=== PATIENT | female | born 2000 | race African-American/Black ===

== ENCOUNTER 2021-03-05 10:43 | Emergency (ER) | payer OTHER ==
[~2021-03-05] VITALS: Ht 167.6 cm; Wt 59.0 kg
--- NOTE | 2021-03-05 10:43 | NUR ---
BIBA TO BED 11 WITH MOTHER
[2021-03-05 10:48] VITALS: BP 132/62
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
[2021-03-05] MEDS: KETOROLAC 60 MG/2 ML VIAL IM ONE (11:28)
--- NOTE | 2021-03-05 12:08 | NUR ---
PA NAVARRO AT BEDSIDE EVALUATING PT
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
--- NOTE | 2021-03-05 12:44 | NUR ---
BACK FROM RAD. MADE COMFORTABLE.
--- NOTE | 2021-03-05 13:45 | NUR ---
PT REFUSED CLEAN UP OF ABRASION ON LEFT SIDE OF FACE
--- NOTE | 2021-03-05 14:02 | NUR ---
OFFERED TO CLEAN PTS DRY BLOOD OFF SIDE OF LEFT EYE. PT REFUSED. ONLY ABLE TO VISUALIZE SMALL ABRASION. CATHY NAVARRO MADE AWARE.
[2021-03-05] MEDS ORDERED: BACI1PAC6 TP (14:05)
[2021-03-05] MEDS ORDERED: CYCL-711 PO (14:05)
[2021-03-05] MEDS ORDERED: IBUP-2213 PO (14:05)
[2021-03-05 14:22] VITALS: BP 132/62
--- NOTE | 2021-03-05 14:23 | NUR ---
Patient discharged with v/s stable. Written and verbal after care instructions ABOUT MEDICATIONS, CERVICAL SPRAIN, ABRASION, AND LOW BACK SPRAIN given and explained. Patient alert, oriented and verbalized understanding of instructions. Ambulatory with steady gait. All questions addressed prior to discharge. ID band removed. Patient advised to follow up with PMD. Rx of BACITRACIN ZINC, CYCLOBENZAPRINE, AND IBUPROFEN given. Patient educated on indication of medication including possible reaction and side effects. Opportunity to ask questions provided and answered.
== END 2021-03-05 14:23 | disposition home or self-care (01) ==
LOC: MED 10:43
DX: S39.012A Strain of muscle, fascia and tendon of lower back, initial encounter (principal); T14.8XXA Other injury of unspecified body region, initial encounter; G89.29 Other chronic pain; M54.2 Cervicalgia; F32.9 Major depressive disorder, single episode, unspecified; V49.9XXA Car occupant (driver) (passenger) injured in unspecified traffic accident, initial encounter; Y93.89 Activity, other specified; Y92.89 Other specified places as the place of occurrence of the external cause; Y99.8 Other external cause status
CPT/HCPCS: 72040; 72100; 96372; 99284; J1885